=== PATIENT | male | born 1990 | race Caucasian/White ===

== ENCOUNTER → 2017-05-12 | Day surgery (SDC) | payer BC ==
[~2017-05-12] MED LIST: Lactated Ringers 1,000 ML IV SCH; Propofol 200 MG/20 ML SDV IV ONE
[2017-05-12 13:36] VITALS: BP 140/80
--- NOTE | 2017-05-12 13:54 | OR ---
DATE OF OPERATION: 05/12/2017 PREOPERATIVE DIAGNOSIS: GASTROESOPHAGEAL REFLUX DISEASE. POSTOPERATIVE DIAGNOSIS: 1. MODERATE HIATAL HERNIA WITH REFLUX ESOPHAGITIS. 2. DUODENITIS. SURGEON: Michael Paz MD PROCEDURE: ESOPHAGOGASTRODUODENOSCOPY WITH BIOPSIES X2, THOM. ANESTHESIA: MANAGER PROPOSAL due to elevated BMI and chronic GERD. COMPLICATIONS: None. SPECIMEN: 1. Antral THOM. 2. Duodenal biopsy x1. 3. Distal esophageal biopsy x1. FINDINGS: 1. Full-length EGD. 2. Duodenitis with heterotopic gastric tissue. 3. [id number]-[id number] hiatal hernia with reflux esophagitis and ulceration. RECOMMENDATIONS: The patient will be placed on a proton pump therapy. Recommend close followup with his primary MD and if symptoms do not princess, consideration for lap Nathaniel. INDICATIONS: The patient has been having persistent reflux for many years. Jean-Claude Olivera sent him for EGD. DESCRIPTION OF PROCEDURE: The patient was prepped and draped, placed in the left lateral decubitus position. A lubricated Olympus gastroscope was inserted and easily intubated in the esophagus. Esophageal lining was benign for most of its course. The Z-line was crisp and sharp at about 37 cm. The patient has a hiatal hernia present with associated reflux esophagitis. There is some linear ulceration present in its distal aspect. No signs of Ramos's changes. There may be an early nonobstructing Schatzki ring as well. The patient was very difficult to keep down with anesthesia. We were able to get a biopsy of the ulcerative area, but only one for safety purposes. The scope was easily advanced into the stomach through the pylorus into the third portion of duodenum. The 2nd and 3rd portion of duodenum were fine. The bulb showed a lot of heterotopic gastric tissue and there was some duodenitis present. A biopsy of that was taken as well. The scope was brought back into the stomach. There were no gross abnormalities, polyps, mass or otherwise. No signs of peptic ulcer disease. A CLOtest was obtained. Air was then suctioned from the stomach and the scope was removed without complication. JORDAN/CAREY /[id number]
== END ==
LOC: CC.SDS 11:49
PROVIDERS: ATTEND Family Medicine
DX: K21.0 Gastro-esophageal reflux disease with esophagitis (principal); K44.9 Diaphragmatic hernia without obstruction or gangrene; K29.80 Duodenitis without bleeding; Z79.899 Other long term (current) drug therapy
CPT/HCPCS: 43239; 87081; J2704; J7120